=== PATIENT | female | born 1955 | race Caucasian/White ===

== ENCOUNTER → 2017-03-23 07:36 | Outpatient (CLI) | payer OTHER, SELFPAY ==
--- NOTE | 2017-03-23 07:38 | RAD_ITS ---
STUDY: X-RAY - LEFT ANKLE REASON FOR EXAM: Female, 62 years old. Pain and swelling following a twisting injury. TECHNIQUE: 3 view(s) of the ankle. COMPARISON: Comparison is made with prior study dated May 27, 2013. FINDINGS: Normal visualized distal tibia and fibula. Normal medial and lateral malleoli. Normal tibiotalar articulation and ankle mortise. Normal visualized talus and calcaneus. The visualized subtalar, talonavicular, calcaneocuboid and tarsal articulations are normal. Soft tissue swelling. RAD/Ankle min 3 Views IMPRESSION: Soft tissue swelling. Electronically Signed: Neal Snider MD at 8:05 EST Tel [phone], Service support ,
== END ==
PROVIDERS: Family Provider Internal Medicine; PCP Internal Medicine; Visit Provider Internal Medicine
DX: M25.572 Pain in left ankle and joints of left foot (principal)
CPT/HCPCS: 73610

== ENCOUNTER → 2017-05-16 07:33 | Outpatient (CLI) | payer OTHER, SELFPAY ==
--- NOTE | 2017-05-16 07:35 | RAD_ITS ---
STUDY: X-RAY - LUMBAR SPINE REASON FOR EXAM: Female, 62 years old. Chronic lower back pain worsening over the past 2 months. TECHNIQUE: 5 view(s) of the lumbar spine were obtained. COMPARISON: None FINDINGS: Normal lumbar lordosis. There is no substantial scoliosis. There is a normal alignment of the vertebrae. Normal vertebral bodies and endplates. Normal disc space heights. There is no acute fracture, dislocation or destructive osseous pathology. There is no demonstrated spondylolysis of the pars interarticulares. The soft tissue structures are unremarkable. Small rounded calcification in the left upper quadrant. RAD/L/S Spine Min 4 Views IMPRESSION: Normal x-ray examination of the lumbar spine. Electronically Signed: Richie Ward DO at 16:57 EDT Tel [phone], Service support ,
== END ==
PROVIDERS: Family Provider Internal Medicine; PCP Internal Medicine; Visit Provider Internal Medicine
DX: M54.5 Low back pain (principal)
CPT/HCPCS: 72110

== ENCOUNTER → 2017-05-29 06:16 | Outpatient (CLI) | payer OTHER, SELFPAY ==
--- NOTE | 2017-05-29 06:32 | MRI_ITS ---
STUDY: MRI LUMBAR SPINE WITHOUT CONTRAST REASON FOR EXAM: Female, 62 years old. low back pain left side. TECHNIQUE: Standardized fat and water weighted pulse sequences were obtained in the sagittal and axial planes. COMPARISON: March 29, 2012 FINDINGS: T12-L1: Normal endplates. Normal disc height, hydration and morphology. Normal bilateral facet joints. Normal central canal and bilateral lateral recesses. Normal bilateral intervertebral neural foramina. Normal lumbar lordosis. There is no substantial scoliosis. Normal conus medullaris that terminates at the L1/L2 L1-2: There is mild disc space narrowing and endplate spondylosis there is a minimal disc bulge and facet arthropathy without significant central canal or foraminal stenosis. L2-3: There is mild disc space narrowing and endplate spondylosis. There is a minimal disc bulge and facet arthropathy without significant central canal or foraminal stenosis. L3-4: There is mild disc space narrowing and endplate spondylosis. There is mild disc bulge with increased small right paracentral component with mild right lateral recess narrowing. There is no significant central canal or foraminal stenosis. L4-5: There is stable minimal disc space narrowing and endplate spondylosis. There is a mild disc bulge with posterior annular fissure without significant central canal or foraminal stenosis. L5-S1: Normal endplates. Normal disc height, hydration and morphology. Normal central canal and bilateral lateral recesses. Normal bilateral intervertebral neural foramina. There is mild bilateral facet arthropathy. Normal visualized sacral ala. Normal visualized paraspinous soft tissue structures. MRI/Spine Lumbar (Routine) IMPRESSION: Mild multilevel degenerative changes. Electronically Signed: Dagmar Traore MD at 8:31 EDT Tel , Service support ,
== END ==
PROVIDERS: Family Provider Internal Medicine; PCP Internal Medicine; Visit Provider Internal Medicine
DX: M54.5 Low back pain (principal)
CPT/HCPCS: 72148

== ENCOUNTER 2017-06-14 11:30 | Outpatient (RCR) | payer OTHER, SELFPAY ==
--- NOTE | 2017-05-31 15:22 | HP.PTEVAL_ITS ---
Patient's Visit Information JOSELITO BONNER is a 62 year old F referred to Physical Therapy by Shasha HINOJOSA with a diagnosis of LBP. Date of Evaluation: 05/31/17 Physical Therapist: Genaro Mantilla DPT, OC - Visit Plan Frequency: 2x /Week Duration: 4 Weeks Plan: 2x/week for 2-4 weeks for managemnt if discal pathology... ext based ex adn progression of forces. core strength and progress to HEP. Education on activity modification. ice and modalities as needed. - Subjective Subjective: Fell off chair in February and broke foot and hurt back. Has always had back problems but worse since fall. LBP is L and in back at all. MRI showed degenerationa dn bulging discs. No ex at home. Saw chiropractor but not anymore. Has constant burning during the day. Standing from sitting position is hard. Sleep is tossing and turning and luong in LB. Work is tough because sits all day at [employer]. Worse in morning. Avoids vaccuum at home. Wants to walk for fitness but not sure she can right now. - Pain R LBP Pain Intensity (Out of 10): 3 Pain Intensity Range: 0, 10 Comment: 10 in morning, - Objective Walks with excessive pelvic motion, I , trasnfers I but slow and hesitant initially to exit chair. Trasnfers on table are I but painful to scoot and roll. L/S ext painful and min limited, flexion and SB are painless. reflexes 2 /3 patella and achilles. Sensation LE WNL to gross light touch. Strength LE 4- /5 without pain or myotomal problems. - SLR, - slump test. - Goals Goal 1:: full painfree L/S extension Goal Time Frame: 2-4 Weeks Goal 2:: painfree bed and chair transfers. Goal Time Frame: 2-4 Weeks Goal 3:: Pt report pain 1/10 at worst and 90% improved. Goal Time Frame: 2-4 Weeks Goal 4:: Pt I in management including approp walking program/HEP Goal Time Frame: 2-4 Weeks - Rehabilitation Potential Physical Therapy Diagnosis: LBP likely discal in nature. Rehabilitation Potential: Fair - Anticipated Interventions Patient/Client Instruction: Educate patient on: Condition, Plan of Care For the Purpose of:: To decrease pain Therapeutic Exercise to Include: Strength training, Active ROM, Dynamic Lumbar Stabilization For the Purpose of:: To decrease pain, To increase ROM, To improve ability of physical actions for home/community/work/leisure Manual Therapy Techniques to Include: Mobilization Comment: ext For the Purpose of:: To decrease pain, To increase ROM Thank you for the opportunity to evaluate your patient. For Medicare and Medicare HMO plans, please review the plan of care and approve it. It will need to be FAXED BACK to us at [phone] for Medicare purposes. Please let me know if there are questions or concerns regarding this plan of care. Physician Signature: Date:
--- NOTE | 2017-06-14 11:54 | HP.PTDCSUM ---
HP - PT D/C Summary It has been my pleasure to treat JOSELITO BONNER under orders from Shasha Mayo, for the diagnosis of LBP for a total of 4 visit(s). Discharge Date: 06/14/17 Please see the following information for a summary of their discharge status. - Subjective Subjective: Doing good. Only am pain and for 15 minutes 2/10 adn back bends help. It is good the rest of day. Using towel roll at work. - Pain R LBP Pain Intensity (Out of 10): 3 - Overall Improvement % Improvement: 90 - Objective Objective/Function: Admittedly very little time to walk or exercise. Full L/S AAROM with just minor end range pain with extension. OVERALL DOING EXCELLENT. - Goals Goal 1:: full painfree L/S extension Goal Progress: Progressing Goal 2:: painfree bed and chair transfers. Goal Progress: Goal Met Goal 3:: Pt report pain 1/10 at worst and 90% improved. Goal Progress: Progressing Goal 4:: Pt I in management including approp walking program/HEP Goal Progress: Goal Met - Plan Plan: D/C to HEP - D/C Information Discharge Comments: Pt to continue HEP I and call if problems or concerns. If there are questions or concerns regarding this patient's physical therapy, please feel free to call me at [phone]. Thank you for the referral of this patient. Sincerely, Genaro Mantilla, DPT, OC
== END 2017-06-14 19:00 | disposition home or self-care (01) ==
LOC: PT 11:30
PROVIDERS: Family Provider Internal Medicine; PCP Internal Medicine; Visit Provider Internal Medicine
DX: M54.5 Low back pain (principal)
CPT/HCPCS: 97110; 97161; 97530

== ENCOUNTER → 2017-08-28 06:15 | Outpatient (CLI) | payer OTHER, SELFPAY ==
--- NOTE | 2017-08-28 06:34 | MRI_ITS ---
STUDY: MRI LEFT ANKLE WITHOUT CONTRAST REASON FOR EXAM: Female, 62 years old. Left-sided ankle pain. Patient has history of prior calcaneal fracture. TECHNIQUE: Standardized fat and water weighted pulse sequences were obtained in all 3 orthogonal planes. COMPARISON: Radiographs of left ankle dated March 23, 2017. FINDINGS: Normal subcutis adipose space. Normal posterior tibialis tendon. Normal flexor digitorum longus tendon. Normal flexor hallucis longus tendon. Normal peroneus longus and brevis tendons. Normal tibialis anterior tendon. Normal extensor hallucis longus tendon. Normal extensor digitorum longus tendons. Normal Achilles tendon and teno-osseous insertion. Normal plantar fascia. Normal plantar calcaneal tubercles. Normal intrinsic muscles of the rearfoot. Normal distal tibiofibular syndesmotic ligamentous complex. Normal lateral ligamentous complex. Normal subtalar ligaments and sinus tarsi. Normal deltoid ligamentous complexes. Normal tibiotalar articulation. There may be a ganglion cyst posterior to the talus versus small effusion. Normal talar dome. Normal subtalar articulations. Normal talonavicular articulation. Normal calcaneocuboid articulation. Normal navicular-cuneiform articulations. MRI/Lower Ext Joint Only (Routine) IMPRESSION: Small joint effusion. Electronically Signed: Miya Jimenez MD at 9:03 EDT , Service support ,
== END ==
PROVIDERS: Family Provider Internal Medicine; PCP Internal Medicine; Visit Provider Podiatrist
DX: S92.025D Nondisplaced fracture of anterior process of left calcaneus, subsequent encounter for fracture with routine healing (principal); S93.491D Sprain of other ligament of right ankle, subsequent encounter; M79.672 Pain in left foot; M25.572 Pain in left ankle and joints of left foot; X58.XXXD Exposure to other specified factors, subsequent encounter
CPT/HCPCS: 73721

== ENCOUNTER → 2018-01-10 06:54 | Outpatient (CLI) | payer OTHER, SELFPAY ==
--- NOTE | 2018-01-10 06:58 | BI_ITS ---
MAMMOGRAPHY - BILATERAL SCREENING REASON FOR EXAM: Female, 62 years old. Routine annual screening examination. PERTINENT HISTORY: Non-contributory. TECHNIQUE: Digital bilateral breast faith (3D mammographic acquisition) in the CC and MLO projections. 2-D mediolateral oblique (MLO) and craniocaudad (CC) views of both breasts were obtained. CAD: Full Field Digital Mammography with Computer Added Detection was performed. COMPARISON: Comparison is made with prior examination dated June 25, 2015 and June 09, 2014. FINDINGS: Breast Composition: There are scattered areas of fibroglandular density. There are no dominant masses or suspicious calcifications. Stable small bilateral axillary lymph nodes. No other significant abnormalities are identified. There has been no significant change since the prior study. BI/SCREENING MAMM (CAD), BILAT IMPRESSION: Stable bilateral screening mammogram. Yearly follow-up mammogram recommended. (A) ASSESSMENT CATEGORY: BIRADS Category 2: Benign. A letter regarding these results will be sent to the patient by the facility within 30 days. Approximately 10% of breast cancers are not detected by mammography. A normal mammogram should not delay biopsy of a clinically suspicious abnormality. [id number] Electronically Signed: Neal Snider MD at 9:43 EST Tel [phone], Service support ,
== END ==
PROVIDERS: Family Provider Internal Medicine; PCP Internal Medicine; Referring Provider Internal Medicine; Visit Provider Internal Medicine
DX: Z12.31 Encounter for screening mammogram for malignant neoplasm of breast (principal)
CPT/HCPCS: 77063; 77067

== ENCOUNTER → 2019-01-08 07:39 | Outpatient (CLI) | payer OTHER, SELFPAY ==
--- NOTE | 2019-01-08 07:52 | US_ITS ---
STUDY: ABDOMINAL ULTRASOUND REASON FOR EXAM: Female, 63 years old. The patient has a history of mononucleosis. TECHNIQUE: Transabdominal ultrasound was performed with real-time and static nielsen scale imaging. TECHNICAL QUALITY: Adequate. COMPARISON: None. FINDINGS: Liver: The liver measures 12.7 cm. There is increased echogenicity consistent with fatty infiltration. The bile ducts are within normal limits. There is hepatic color flow. The direction of portal flow is hepatopetal. There is a 1.1 cm x 1 cm x 0.6 cm cyst in the right lobe of the liver. Portal vein measurement: Gallbladder: Normal distended gallbladder. The gallbladder wall measures 2.3 mm. There is a negative sonographic Amaya's sign. There is no pericholecystic fluid. There are no gallstones. Common Bile Duct (C.B.D.): The common bile duct measures 4.8 mm. Pancreas: Normal size of the head, body and tail of the pancreas. There is normal echogenicity of the pancreas. There is no demonstrated pancreatic mass or cyst. Spleen: Normal size of the spleen. The spleen measures 9.4 cm x 3.7 cm x 3.7 cm. Right Kidney: Normal size of the right kidney. The right kidney measures 10.3 cm x 4.7 cm x 5.1 cm. Normal renal cortex. The right cortex measures 1.6 cm. There is no demonstrated renal mass or cyst. There is no right hydronephrosis. Left Kidney: Normal size of the left kidney. The left kidney measures 10.8 cm x 4.8 cm x 5.2 cm. Normal renal cortex. The left cortex measures 1.3 cm. There is a 1.2 cm x 1.2 cm x 1.2 cm left renal cyst. There is no left hydronephrosis. Aorta: Unremarkable. I.V.C.: The IVC is patent. There is no ascites. US/Abdomen Complete IMPRESSION: Fatty infiltration of the liver. 1.1 cm x 1 cm x 0.6 cm cyst in the right lobe of the liver. Small left renal cyst. Electronically Signed: Neal Snider, at 11:37 EST , Service support ,
== END ==
PROVIDERS: Family Provider Internal Medicine; PCP Internal Medicine; Referring Provider Internal Medicine; Visit Provider Internal Medicine
DX: B27.90 Infectious mononucleosis, unspecified without complication (principal)
CPT/HCPCS: 76700

== ENCOUNTER → 2019-01-29 15:09 | Outpatient (CLI) | payer OTHER, SELFPAY ==
--- NOTE | 2019-01-29 15:12 | BI_ITS ---
MAMMOGRAPHY - BILATERAL SCREENING REASON FOR EXAM: Female, 64 years old. Routine annual screening examination. PERTINENT HISTORY: Non-contributory. TECHNIQUE: Digital bilateral breast brittney (3D mammographic acquisition) in the CC and MLO projections. 2-D mediolateral oblique (MLO) and craniocaudad (CC) views of both breasts were obtained. CAD: Full Field Digital Mammography with Computer Added Detection was performed. COMPARISON: Comparison is made with prior study to January 10, 2018 and June 25, 2015. FINDINGS: Breast Composition: There are scattered areas of fibroglandular density. There are no dominant masses or suspicious calcifications. Stable small benign-appearing bilateral axillary lymph nodes. No other significant abnormalities are identified. There has been no significant change since the prior study. BI/SCREEN MAMM (CAD) W/BRITTNEY BILAT IMPRESSION: Stable bilateral screening mammogram. Yearly follow-up mammogram recommended. (A) ASSESSMENT CATEGORY: BIRADS Category 1: Negative. A letter regarding these results will be sent to the patient by the facility within 30 days. Approximately 10% of breast cancers are not detected by mammography. A normal mammogram should not delay biopsy of a clinically suspicious abnormality. [id number] Electronically Signed: Neal Snider, at 9:06 EST , Service support ,
== END ==
PROVIDERS: Family Provider Internal Medicine; PCP Internal Medicine; Referring Provider Internal Medicine; Visit Provider Internal Medicine
DX: Z12.31 Encounter for screening mammogram for malignant neoplasm of breast (principal)
CPT/HCPCS: 77063; 77067

== ENCOUNTER 2019-12-08 21:34 | Observation (INO) | payer OTHER, SELFPAY ==
[2019-12-08 21:36] VITALS: BP 122/56; PULSE 78; RESP 16; TEMP 36.8; O2SAT 95; BMI 37.1
[2019-12-08] MEDS: morphine 8 MG/ML Syringe IM (22:32)
[2019-12-08] MEDS: diazePAM 5 MG Tablet PO (22:33)
[2019-12-08 23:20] VITALS: BP 112/53; O2SAT 93
--- NOTE | 2019-12-08 23:39 | ED.VISSUMM ---
- ER Visit Summary Date of Service: 12/08/19 Chief Complaint: Back pain History of Present Illness: The patient is a [address] Gray. She reports that she has low back pain that began today. It is a sharp pain that is 10 out of 10 with any movement and 2 out of 10 at rest. She taken ibuprofen without relief. She denies any trauma. No fall, MVA, or change in activity. There is no radiation to her legs. No numbness or weakness in her legs. No problems with her bowels or bladder. No groin numbness. Patient is on Eliquis for prior PEs. She denies any trauma. She denies fever, chills, abdominal pain, dysuria, frequency, or other red flags. Physical Examination: Vitals: Stable. Afebrile. General: A&O x 3. NAD. Cardiovascular exam: Regular rate and rhythm, no murmur, rub or gallop. Respiratory exam: Clear to auscultation bilaterally. No wheezes or stridor. Abdominal exam: Soft, nontender, nondistended, normal bowel sounds. No peritoneal signs. Back: Diffuse mild tenderness to palpation over the lumbar spine and the paraspinous musculature in the lumbar region. No point tenderness. Negative straight leg bilaterally. 5/5 DF, PF, EHL bilaterally. Normal sensation to light touch throughout. Extremity: No clubbing, cyanosis, or edema. Emergency Department Course and Treatment: Patient was given a dose of morphine IM and Valium p.o. She taken ibuprofen prior to arrival. She was unable to get out of the bed. She was given Sherwood p.o. She was observed over the course of another hour and still was unable to stand and ambulate. Treatment Plan: Patient was discussed with Dr. Craven. She will be admitted to hospital for further ablation and treatment. Disposition: Admitted in stable condition. Impression: 1. Intractable back pain. 2. Coagulopathy on Eliquis. This note was generated with [employer] dictation software. It may contain incorrect words, spelling, and punctuation that were not noted in review of the chart prior to signing ED Disposition - Plan for ED Patient: Instructions: ED Back Pain Acute or Chronic Prescriptions: Hydrocodone Bitart/Apap 5-325 [Sherwood 5MG-325MG] 1 tab PO Q4H PRN PRN 2 Days #10 tab PRN Reason: Pain Prescription Printed Diazepam [Valium] 5 mg PO Q8 PRN #10 tab PRN Reason: Muscle Spasm Prescription Printed Referrals: Shasha Mayo DO [Primary Care Provider] - 3-5 Days if not improving
--- NOTE | 2019-12-09 00:04 | ED.RN ---
Attempted to discharge patient home. After several tries, PT was able to sit at edge of bed and stand. PT unable to sit in chair and was too afraid to ambulate. MD aware and at bedside.
[2019-12-09] MEDS: HYDROcodone Bitartrate/Apap 5/325 Tablet PO (00:16)
[2019-12-09 01:27] VITALS: BP 102/55; PULSE 80; RESP 15; O2SAT 93
--- NOTE | 2019-12-09 01:27 | PCM.HP.STD ---
Problem List (1) Intractable back pain Status: Acute (2) Anxiety and depression Status: Chronic (3) Obesity Status: Chronic Qualifiers: Obesity type: due to excess calories Obesity classification: adult class 2 (BMI 35 - 39.9) Serious obesity comorbidity presence: without serious comorbidity Body mass index: BMI 37.0-37.9 Qualified Code(s): E66.09 - Other obesity due to excess calories; Z68.37 - Body mass index [BMI] 37.0-37.9, adult (4) DVT of lower extremity (deep venous thrombosis) Status: Chronic Qualifiers: Affected thrombotic vein of extremity: unspecified vein of extremity Chronicity: unspecified Laterality: unspecified laterality Qualified Code(s): I82.409 - Acute embolism and thrombosis of unspecified deep veins of unspecified lower extremity (5) Pulmonary embolism Status: Chronic Qualifiers: Pulmonary embolism type: unspecified Chronicity: unspecified Acute cor pulmonale presence: unspecified Qualified Code(s): I26.99 - Other pulmonary embolism without acute cor pulmonale History of Present Illness Date of Admission: 12/09/19 Chief Complaint: Intractable back pain The patient is a 64 y/o F w/ PMHx: Hx PE on eliquis, Anxiety and Depression, Obesity, hx of intermittent lumbar back pain over the years who presents to the [facility] ED on 12/09/19 with history of intractable back pain, specifically located in the right lower back, paraspinal region and the R SI region, worse with movement, described as sharp stabbing, 10 out of 10 in severity with any movement, resting 2/10 starting < 24 hours prior and not resolving. She denies any radiation of pain into her extremities, paresthesias, or changes to bowel or bladder function with ongoing normal sensation. Work-up in the ED included T 98.2, heart rate 78, BP 122/56, respiratory rate 16, 95% on room air, no labs or imaging was ordered. In the ED patient was ministered morphine, Valium and Standard but upon attempted discharge patient with severe ongoing debility and back pain prompting request for admission. Past Medical History Past Medical History (Chronic Problems): Chronic Problems Anxiety and depression (Chronic) Obesity (Chronic) Pulmonary embolism (Chronic) DVT of lower extremity (deep venous thrombosis) (Chronic) Allergies amoxicillin trihydrate [From Augmentin] Allergy (Verified 12/08/19 21:35) Angioedema Penicillins [PCN] Allergy (Verified 12/08/19 21:35) Angioedema potassium clavulanate [From Augmentin] Allergy (Verified 12/08/19 21:35) Angioedema Home Medications: Ambulatory Orders Medication Instructions Recorded Apixaban [Eliquis] 2.5 mg PO BID 12/08/19 Citalopram [Celexa] 30 mg PO DAILY 12/08/19 Diazepam [Valium] 5 mg PO Q8 PRN #10 tab 12/08/19 Hydrocodone Bitart/Apap 5-325 1 tab PO Q4H PRN PRN 2 Days #10 tab 12/08/19 [Standard 5MG-325MG] Surgical History: - - Initial ovarian cyst intervention, partial hysterectomy, eventual total hysterectomy with bilateral salpingo-oophorectomy, appendectomy, right knee surgery. Psychiatric History: Anxiety, Depression [employer] History: ovarian cysts Lives: Spouse/ Significant Other Smoking Status: Never smoker Tobacco Use: Non-smoker Alcohol: None Drugs: None - *Family History Maternal History Items: - - Patient notes history of suicide in her mother. Paternal History Items: Cancer, Diabetes, - - Patient notes paternal family history of diabetes and colon cancer. Review of Systems Constitutional: Reports: Malaise, Weakness, Fatigue. Denies: Anorexia, Chills, Fever, Weight Change HEENT: Denies: Head Aches, Sinus Congestion, Sinus Drainage Cardiovascular: Denies: Chest Pain, Palpitations Respiratory: Denies: Cough, Shortness of breath at rest, Sputum production Gastrointestinal: Denies: Abdominal Pain, Nausea, Vomiting Genitourinary: Denies: Dysuria Musculoskeletal: Reports: Back Pain. Denies: Joint Pain, Joint Tenderness Skin: Denies: Rash, Wounds Neurological: Denies: Numbness, Tingling, Focal weakness Psychiatric: Reports: Anxiety, Depression. Denies: Homicidal Ideations, Suicidal Ideations Hematologic/ Lymphatic: Reports: Easy Bleeding. Denies: Easy Bruising VTE Information - Inpt Only VTE Present on Admission: No VTE Mechan Device Prophylaxis: SCD's VTE Pharm Prophylaxis ordered?: No Reason prophylaxis not ordered:: Treatment Not Indicated - Continued on home eliquis regimen. Patient Problems: Active and Suspected Problems Intractable back pain (Acute) Subjective: Patient laying in the ED bed, fatigued appearing, significant acute onset severe pain with any movement attempts during examination. Objective: Physical Examination: General: awake, alert, oriented x 3 and cooperative, laying in the ED bed, fatigued appearing, severe onset intractable back pain with any movements attempted during examination. Skin: normal color, turgor, no icterus, cyanosis. HEENT: AT/NC, EOMI, PERRLA, mildly dry MM, no carotid bruits or JVD noted. Lungs: CTA bilaterally, moderate effort, mild decrease BL bases, no rales, ronchi or wheezing. Heart: Mildly tachycardic with regular rhythm; no gallop, rub audible. Abdomen: soft, obese, NTTP, ND, normal BS, no HSM. Extremities: no cyanosis, clubbing, or edema. Neurological: patient awake, alert, oriented x 3; cognitive function intact; pupils equally reactive to light and accomodation; cranial nerves II-XII grossly normal, moving all 4 extremities however severely limited examination with any further movement attempts, difficulty even rolling in the bed for exam, discomfort with palpation of the right paraspinal and sacroiliac regions but more severe with movement attempts during evaluation, strength severely global decreased accordingly. Psychiatric: affect appears fatigued, uncomfortable, no acute evidence of depressive or anxiety feelings. - Physical Exam Vitals/I&O's: Vital Signs Temp Pulse Resp BP Pulse Ox 98.2 F 78 16 112/53 L 93 12/08/19 21:36 12/08/19 21:36 12/08/19 21:36 12/08/19 23:20 12/08/19 23:20 Oxygen Delivery Method Room Air Weight: 216 lb 4.375 oz Body Mass Index (BMI) 37.1 Assessment/Plan All Active Problems Intractable back pain (Acute) The patient is a 64 y/o F w/ PMHx: Hx PE on eliquis, Anxiety and Depression, Obesity, hx of intermittent lumbar back pain over the years who presents to the [facility] ED on 12/09/19 with history of intractable back pain, specifically located in the right lower back, paraspinal region and the R SI region, worse with movement, described as sharp stabbing, 10 out of 10 in severity with any movement, resting 2/10 starting < 24 hours prior and not resolving. 1. Acute Intractable Back Pain: Will admit to [facility], obtain plan film lumbar spine and SI/sacral/coccyx region, maintain on fall precautions, frequent positioning, po/IV pain regimen, scheduled toradol 30 mg IV a 8 x 5 doses, lidocaine patches to region, tizanidine low dose scheduled, medrol dose pack, low dose TID gabapentin, anti-emetics, bowel regimen. Will consult PT and OT for evaluation. 2. History of pulmonary embolism: Patient with a history of a remote pulmonary embolism following surgery in 2001 with a recurrent pulmonary embolism following knee surgery approximately 5 years prior to current presentation, since then patient has been maintained on oral Eliquis regimen which be continued. 3. Anxiety and depression: We will continue patient home Celexa regimen. 4. Obesity: Weight loss and lifestyle changes encouraged. 5. DVT prophylaxis: SCDs, continue home Eliquis regimen. OBSV E&M: [id number] Initial observation care L3
[2019-12-09 02:14] VITALS: BP 102/55; PULSE 80; RESP 15; TEMP 36.6; O2SAT 93
--- NOTE | 2019-12-09 02:24 | NURSING ---
Per Susana in ER, the lumbar xray was not done at this time d/t the fact that the pt is too painful and Dr. Craven agreed.
[2019-12-09 02:28] VITALS: BMI 30.8
--- NOTE | 2019-12-09 02:31 | RAD_ITS ---
STUDY: X-RAY - SACRUM/COCCYX REASON FOR EXAM: Female, 64 years old. Intractable back pain, no injury TECHNIQUE: 3 view(s) of the sacrum and coccyx were obtained. COMPARISON: None. FINDINGS: Normal bilateral sacroiliac joints. Normal visualized sacral ala and fused sacral bodies. Normal sacrococcygeal junction with a normal angulation. Normal coccygeal segments. The presacral soft tissue structures are unremarkable. RAD/Sacrum-Coccyx min 2 Views IMPRESSION: No acute bony injury of the sacrum and coccyx. Electronically Signed: Jaswant Benjamin DO at 17:02 EDT Tel [phone], Service support ,
[2019-12-09 02:43] VITALS: BP 113/64; PULSE 81; RESP 18; TEMP 36.6; O2SAT 95
[2019-12-09] MEDS: 0.9% Normal Saline 1,000 ML 125 ML IV (03:30)
[2019-12-09] MEDS: Ketorolac 30 MG/ML Syringe IV ×3 (03:30→13:38)
[2019-12-09] MEDS: tiZANidine HCl 2 MG Tablet PO ×3 (03:30→13:44)
[2019-12-09] MEDS: Gabapentin 100 MG Capsule PO ×4 (03:30→17:20)
[2019-12-09] MEDS: 0.9% Saline Lock 10 ML Syringe IV ×2 (03:33→13:38)
[2019-12-09 06:10] LABS: Absolute Lymphocyte Count 1.08 X10^3/uL (0.83-4.51); Absolute Neutrophil Count 4.7 X10^3/uL (2.0-7.7); Basophil# 0.03 X10^3/uL; Basophil% 0.5 % (0-1); Eosinophil# 0.12 X10^3/uL; Eosinophils% 1.8 % (0-5); Hematocrit 40.2 % (37-47); Hemoglobin 12.6 g/dL (12.0-15.0); Lymphocyte # 1.08 X10^3/ul (4.0); Lymphocyte % 16.4 % (19-41); Mean Corp Hgb Conc 31.3 g/dL (32-36); Mean Corpuscular Hgb 28.8 pg (27.0-32.0); Mean Corpuscular Volume 91.8 fL (81-99); Mean Platelet Vol. 10.7 fl (6.2-12.0); Monocyte% 9.1 % (0-10); NRBC Flagged by Analyzer 0 % (0-5); Neutrophil # 4.72 X10^3/uL (2.7-7.7); Neutrophil % 71.7 % (47-70); Platelet Count 222 K/mm3 (150-450); RBC Distribution Width CV 12.9 % (11.6-14.6); RBC Distribution Width SD 43.8 fl (35.1-43.9); Red Blood Count 4.38 M/mm3 (4.2-5.4); White Blood Count 6.6 K/mm3 (4.4-11.0)
[2019-12-09 06:37] LABS: AST(SGOT) 11 U/L (15-37); Alanine Aminotransfer ALT/SGPT 21 U/L (13-56); Albumin, Serum 3.2 g/dL (3.2-5.0); Alkaline Phosphatase 57 U/L (45-117); Anion Gap 5 (5-15); BUN 17 mg/dL (7-18); BUN/Creat Ratio 21.1 RATIO (10-20); Calcium,Total 8.8 mg/dL (8.5-10.1); Chloride 107 mmol/L (98-107); Creatinine, Serum 0.81 mg/dL (0.55-1.02); EST Glomerular Filtration Rate 76 mL/min (>60); Est Glom Filt Rate - Afr Amer 92 mL/min (>60); Estimated Creatinine Clearance 61.39 ml/min; Globulin 3.1 g/dL (2.2-4.2); Glucose 90 mg/dL (74-106); Potassium 3.7 mmol/L (3.5-5.1); Protein, Total 6.3 g/dL (6.4-8.2); Sodium Level 140 mmol/L (136-145)
[2019-12-09] MEDS: MethylPREDNISolone DosePak 4 MG BOX PO ×3 (09:02→17:20)
[2019-12-09] MEDS: APIXABAN 2.5 MG TABLET PO (09:03)
[2019-12-09] MEDS: Lidocaine 5% Patch 2 PATCH TOPICAL (09:03)
[2019-12-09] MEDS: Pantoprazole Sodium 20 MG Tablet PO (09:03)
[2019-12-09 09:05] VITALS: BP 103/56; PULSE 65; RESP 16; TEMP 36.6; O2SAT 95
[2019-12-09 11:30] VITALS: O2SAT 95
--- NOTE | 2019-12-09 13:55 | RAD_ITS ---
STUDY: X-RAY - LUMBAR SPINE REASON FOR EXAM: Female, 64 years old. intractable back pain, no injury TECHNIQUE: 3 view(s) of the lumbar spine were obtained. COMPARISON: None FINDINGS: Normal lumbar lordosis. There is no substantial scoliosis. There is a normal alignment of the vertebrae. Normal vertebral bodies with mild spurring at the endplates. Normal disc space heights. The soft tissue structures are unremarkable. RAD/Lumbar Spine 2 or 3 Views IMPRESSION: Mild degenerative changes of the lumbar spine. Electronically Signed: Jaswant Benjamin DO at 17:01 EDT Tel [phone], Service support ,
--- NOTE | 2019-12-09 15:16 | PCM.DC ---
- Discharge Diagnoses Current Active Problems: Current Active and Chronic Problems Intractable back pain (Acute) Anxiety and depression (Chronic) Obesity (Chronic) You will use the following diet at home:: Regular Discharge Activity: May Not Drive Weight Bearing Status: Weight bearing as tolerated Additional Activity Instructions:: Outpatient PT for back pain Call your doctor if you observe: Fever of 101 or Higher, Coldness, Increased Pain, Numbness or Tingling, Inability to urinate, Inability to have a bowel movement, Using more than one pad per hour, Shortness of breath, Dizziness, Fainting spells, Swelling in the ankles, Chest pain, Prolonged hiccoughing, Increased palpitations (irregular heartbeat), Calf discomfort, Uncontrolled pain Instructions: ED Back Pain Acute or Chronic Allergies/Adverse Reactions: Allergies amoxicillin trihydrate [From Augmentin] Allergy (Verified 12/09/19 02:33) Angioedema, rash Penicillins [PCN] Allergy (Verified 12/09/19 02:33) Angioedema, rash potassium clavulanate [From Augmentin] Allergy (Verified 12/09/19 02:33) Angioedema, rash Medications to take at Discharge Apixaban [Eliquis] 2.5 mg PO BID 12/08/19 Citalopram [Celexa] 30 mg PO DAILY 12/08/19 Hydrocodone/Acetaminophen [Jewett 5-325 Tablet] 1 each PO Q4H PRN #10 tablet 12/09/19 MethylPREDNISolone DosePak [Medrol DosePak] 4 mg PO UD #1 pack 12/09/19 Tizanidine HCl 4 mg PO TID PRN PRN #14 tab 12/09/19 The following prescriptions were given: MethylPREDNISolone DosePak [Medrol DosePak] 4 mg PO UD #1 pack Transmission Status: Pending to [facility] Hydrocodone/Acetaminophen [Jewett 5-325 Tablet] 1 each PO Q4H PRN #10 tablet PRN Reason: Pain Score 6-10 Transmission Status: Received by [facility] Tizanidine HCl 4 mg PO TID PRN PRN #14 tab PRN Reason: MUSCLE SPASM Transmission Status: Pending to [facility] Primary Care Physician: Shasha Mayo DO [Primary Care Provider] - 3-5 Days if not improving Please follow up with your Primary Care Physician in: IN 2 WEEKS Test Results: Test results from this visit will be discussed in further detail at your follow-up appointment, if applicable. Please Follow Up With: Nya Littlejohn MD When: IN 3-4 WEEKS FOR
[2019-12-09 15:20] VITALS: BP 108/56; PULSE 66; RESP 16; TEMP 36.7; O2SAT 94
--- NOTE | 2019-12-09 15:30 | DS.PCM_ITS ---
Discharge Date and Diagnosis - Problem List Patient Problems: Active and Suspected Problems Intractable back pain (Acute) Date of Admission: 12/09/19 Date of Discharge: 12/09/19 - Primary Discharge Diagnosis Acute Problems: Active Problems Intractable back pain (Acute) - Secondary Discharge Diagnosis Chronic Problems: Chronic Problems Anxiety and depression (Chronic) Obesity (Chronic) Pulmonary embolism (Chronic) DVT of lower extremity (deep venous thrombosis) (Chronic) Hospital Course and Treatment Imaging Results: 12/09/19 13:55 Xray Lumbar [Lumbar Spine 2 or 3 Views] [RAD] Stat Summary of Care Provided: The patient is a 64 year old F with history of PE on Eliquis was admitted with intermittent lumbar back pain, acute exacerbation for 1 day with history of chronic back pain being managed by PCP. [facility] physician wanted to discharge on Valium, Hum[place] but patient was unable to ambulate therefore admitted. Patient pain was controlled. Patient was treated with Medrol Dosepak, oxycodone and muscle relaxant. Patient was evaluated by PT and recommended outpatient physical therapist. Patient is discharged on Medrol Dosepak, tizanidine and Humarock PRN for pain control. Patient was advised to follow-up with PCP and pain management doctor. Outpatient physical therapy. Her other comorbidities PE, anxiety and depression are controlled. Patient is on Eliquis for PE. Discharge medication reconciliation done. Discharge follow-up instructions co mpleted. Discharge process discussed with the patient and her near the bedside and all questions were answered to patient's satisfaction. Prescription sent to the patient's pharmacy. Total time spent, exact 35 minutes on discharge meds reconciliation, examination, coordination of care with nurses and ancillary staff, review of imaging and blood test and discussion with the patient on follow-up instructions Patient Problems: Active and Suspected Problems Intractable back pain (Acute) Objective: Seen and examined. Heart rate and blood pressure are controlled. Pulse ox 94% on room air. Patient complain of lumbosacral back pain more on the right side. Pain is localized 4-5/10 intensity without radiation. No numbness, tingling or new bladder or bowel incontinence. Patient ambulated in the mixon with slow gait by physical therapist and recommended outpatient PT. Physical finding General: Alert, Oriented x3, Cooperative HEENT: Atraumatic, PERRLA, EOMI, Normocephalic Oral: No Gingival or Mucosal Lesions/ Ulcerations Neck: Supple, No JVD, Negative Carotid Bruits Lungs: Air entry equal in bilateral lung bases. No crepitation/rhonchi Cardiovascular: Regular rate, Regular Rhythm, Normal S1, Normal S2, No murmurs Abdomen: Bowel Sounds Present, Soft, Non Tender, Non-Distended : No renal angle tenderness. No suprapubic tenderness. Extremities: No edema, Capillary Refill Less than 3 Seconds Spine: Mild tenderness over lumbosacral spine. Muscle tenderness over right- sided paraspinal muscle. Skin: No rashes, No breakdown Musculoskeletal: No Tenderness to Palpation of Joints or Extremities Neurological: Cranial nerves II-XII grossly intact, Deep Tendon Reflexes 2+/4 and Symmetrical, Neuro grossly intact Psych/Mental Status: Normal Affect, Appropriate. - Physical Exam Vitals/I&O's: Vital Signs Temp Pulse Resp BP Pulse Ox 98.1 F 66 16 108/56 L 94 12/09/19 15:20 12/09/19 15:20 12/09/19 15:20 12/09/19 15:20 12/09/19 15:20 Oxygen Delivery Method Room Air Weight: 179 lb 10.828 oz Body Mass Index (BMI) 30.8 Intake and Output for Last 24 Hours 12/07/19 12/08/19 12/09/19 23:59 23:59 23:59 Intake Total 1287.92 / 1287.92 Output Total 0 / 0 Balance 1287.92 / 1287.92 Laboratory Results 12/09/19 05:30: WBC 6.6, RBC 4.38, Hgb 12.6, Hct 40.2, MCV 91.8, MCH 28.8, MCHC 31.3 L, RDW Std Deviation 43.8, RDW Coeff of Bre 12.9, Plt Count 222, MPV 10.7, Immature Gran % (Auto) 0.500, Neut % (Auto) 71.7 H, Lymph % (Auto) 16.4 L, [place] % (Auto) 9.1, Eos % (Auto) 1.8, Baso % (Auto) 0.5, Absolute Neuts (auto) 4.7, Absolute Lymphs (auto) 1.08, Nucleated RBC % 0 12/09/19 05:30: Sodium 140, Potassium 3.7, Chloride 107, Carbon Dioxide 28.0, Anion Gap 5, BUN 17, Creatinine 0.81, Estim Creat Clear Calc 61.39, Est GFR (MDRD) Af Amer 92, Est GFR (MDRD) Non-Af 76, BUN/Creatinine Ratio 21.1 H, Glucose 90, Calcium 8.8, Total Bilirubin 0.40, AST 11 L, ALT 21, Alkaline Phosphatase 57, Total Protein 6.3 L, Albumin 3.2, Globulin 3.1, Albumin/Globulin Ratio 1.0 Current Medications Acetaminophen (Tylenol) 650 mg PO Q6H PRN PRN PRN Reason: Pain Score 1-10/Temp > 100.7 F Al Hydroxide/Mg Hydroxide (Mylanta Ii) 30 ml PO Q6H PRN PRN PRN Reason: Gastric Burning Albuterol Sulfate (Ventolin Aerosols) 2.5 mg INHALATION Q2H PRN PRN PRN Reason: Dyspnea, wheezing Apixaban (Eliquis) 2.5 mg PO BID [facility] Last Admin: 12/09/19 09:03 Dose: 2.5 mg Documented by: Citalopram Hydrobromide (Celexa) 30 mg PO DAILY@2200 LAURA Gabapentin (Neurontin) 100 mg PO TIDCM [facility] Last Admin: 12/09/19 12:27 Dose: 100 mg Documented by: Guaifenesin (Robitussin) 20 ml PO Q4H PRN PRN PRN Reason: COUGH Ketorolac Tromethamine (Toradol (Bkc)) 30 mg IV Q8 [facility] Stop: 12/10/19 06:01 Last Admin: 12/09/19 13:38 Dose: 30 mg Documented by: Lidocaine (Lidoderm Patch) 2 patch TOPICAL DAILY [facility]; Protocol Last Admin: 12/09/19 09:03 Dose: 2 patch Documented by: Magnesium Hydroxide (Milk Of Magnesia) 30 ml PO DAILY PRN PRN PRN Reason: Constipation Methylprednisolone (Medrol Dosepak) 4 mg PO 1200,1700 [facility]; Taper Stop: 12/14/19 08:59 Last Admin: 12/09/19 12:27 Dose: 4 mg Documented by: Morphine Sulfate () 2 mg IV Q3H PRN PRN PRN Reason: Pain Score 6-10 Ondansetron HCl (Zofran) 4 mg IV Q8H PRN PRN PRN Reason: NAUSEA/VOMITING Oxycodone HCl (Oxyir) 5 mg PO Q4H PRN PRN PRN Reason: Pain Score 4-5 Pantoprazole Sodium (Protonix) 20 mg PO BID [facility] Last Admin: 12/09/19 09:03 Dose: 20 mg Documented by: Prochlorperazine Edisylate (Compazine Iv) 5 mg IV Q4H PRN PRN PRN Reason: Breakthrough nausea/vomiting Psyllium Hydrophilic Mucilloid (Metamucil) 1 packet PO DAILY PRN PRN PRN Reason: Constipation Senna/Docusate Sodium (Senokot-S, Peggy-Colace) 2 tablet PO BID PRN PRN PRN Reason: Constipation Sodium Chloride () 10 - 40 ml IV UD PRN PRN Reason: SALINE FLUSH Last Admin: 12/09/19 13:38 Dose: 10 ml Documented by: Temazepam (Restoril) 15 mg PO QHS PRN PRN PRN Reason: INSOMNIA Throat Lozenges (Cepacol Sore Throat Lozenge) 1 lozenge MUCOUS MEM Q2H PRN PRN PRN Reason: SORE THROAT Tizanidine HCl (Zanaflex) 2 mg PO Q8 [facility] Last Admin: 12/09/19 13:44 Dose: 2 mg Documented by: Discharge Activity: May Not Drive Weight Bearing Status: Weight bearing as tolerated Additional Activity Instructions:: Outpatient PT for back pain Call your doctor if you observe: Fever of 101 or Higher, Coldness, Increased Pain, Numbness or Tingling, Inability to urinate, Inability to have a bowel movement, Using more than one pad per hour, Shortness of breath, Dizziness, Fainting spells, Swelling in the ankles, Chest pain, Prolonged hiccoughing, Increased palpitations (irregular heartbeat), Calf discomfort, Uncontrolled pain Home Medications: Medications to take at Discharge Apixaban [Eliquis] 2.5 mg PO BID 12/08/19 Citalopram [Celexa] 30 mg PO DAILY 12/08/19 Hydrocodone/Acetaminophen [[place] 5-325 Tablet] 1 each PO Q4H PRN #10 tablet 12/09/19 MethylPREDNISolone DosePak [Medrol DosePak] 4 mg PO UD #1 pack 12/09/19 Tizanidine HCl 4 mg PO TID PRN PRN #14 tab 12/09/19 Following Prescriptions Were Given to Patient: MethylPREDNISolone DosePak [Medrol DosePak] 4 mg PO UD #1 pack Transmission Status: Pending to [facility] Hydrocodone/Acetaminophen [[place] 5-325 Tablet] 1 each PO Q4H PRN #10 tablet PRN Reason: Pain Score 6-10 Transmission Status: Received by [facility] Tizanidine HCl 4 mg PO TID PRN PRN #14 tab PRN Reason: MUSCLE SPASM Transmission Status[facility] Primary Care Physician: Shasha Mayo DO [Primary Care Provider] - 3-5 Days if not improving Please follow up with your Primary Care Physician in: IN 2 WEEKS Please Follow Up With: Nya Littlejohn MD When: IN 3-4 WEEKS FOR Patient Instructions: ED Back Pain Acute or Chronic Medical Necessity - Tobacco Use Smoking Status: Never smoker Tobacco Use: Non-smoker Meaningful Use Info Meaningful Use Diagnoses (Choose all that apply): None applicable OBSV E&M: 37004 Observation care discharge
[2019-12-09] MEDS: oxyCODONE 5 MG Tablet PO (17:26)
== END 2019-12-09 18:00 | disposition home or self-care (01) ==
LOC: ED 22:37 → MS3 12-09 01:41
PROVIDERS: Admitting Provider Family Medicine; Emergency Provider Emergency Medicine; PCP Internal Medicine; Visit Provider Internal Medicine
DX: M54.5 Low back pain (principal); D68.9 Coagulation defect, unspecified; F32.9 Major depressive disorder, single episode, unspecified; F41.9 Anxiety disorder, unspecified; E66.9 Obesity, unspecified; Z86.718 Personal history of other venous thrombosis and embolism; Z86.711 Personal history of pulmonary embolism; Z79.01 Long term (current) use of anticoagulants; Z68.37 Body mass index [BMI] 37.0-37.9, adult; Z79.899 Other long term (current) drug therapy
CPT/HCPCS: 36415; 72100; 72220; 80053; 85025; 96361; 96372; 96374; 96376; 97161; 97166; 99218; 99251; 99284; J7030; A4216; G0378; G0463

== ENCOUNTER 2019-12-11 09:33 | Emergency (ER) | payer OTHER, SELFPAY ==
[2019-12-09 02:28] VITALS: BMI 30.8
[2019-12-11 09:34] VITALS: BP 123/65; PULSE 57; RESP 18; TEMP 36.4; O2SAT 96; BMI 29.2
--- NOTE | 2019-12-11 09:51 | MRI_ITS ---
STUDY: MRI LUMBAR SPINE WITHOUT CONTRAST REASON FOR EXAM: Female, 64 years old. back pain, no new injury, bilat leg spasms TECHNIQUE: Standardized fat and water weighted pulse sequences were obtained in the sagittal and axial planes. COMPARISON: 05/29/2017 FINDINGS: T12-L1: Normal endplates. Normal disc height, hydration and morphology. Normal bilateral facet joints. Normal central canal and bilateral lateral recesses. Normal bilateral intervertebral neural foramina. Normal lumbar lordosis. There is no substantial scoliosis. Normal conus medullaris that terminates at the L1/L2. L1-2: No change in the mild bilobed disc protrusion which produces mild spinal stenosis and mild bilateral neural foraminal stenosis. L2-3: No change in the mild bilobed disc protrusion which produces mild spinal stenosis and mild bilateral neural foraminal stenosis. L3-4: No change in the mild bilobed disc protrusion which produces mild spinal stenosis and mild bilateral neural foraminal stenosis. L4-5: No change in the mild broad disc protrusion with central annular tear which produces mild spinal stenosis and mild bilateral neural foraminal stenosis. L5-S1: Normal endplates. Normal disc height, hydration and morphology. Normal bilateral facet joints. Normal central canal and bilateral lateral recesses. Normal bilateral intervertebral neural foramina. Normal visualized sacral ala. Normal visualized paraspinous soft tissue structures. MRI/Spine Lumbar (Routine) IMPRESSION: No change from 05/29/2017. Electronically Signed: Augustin Samson MD at 12:46 EDT Tel , Service support ,
--- NOTE | 2019-12-11 09:53 | ED.VIS.GEN ---
History of Present Illness Chief Complaint: Back Informant: Patient Onset: Days Context: Gradual Onset - 4 days Current Severity: Moderate Maximum Severity: Severe Narrative: Patient presents secondary to continued back pain. She was seen here in the [place] [facility] [place] hours of the . She states that her back is been sore the evening of the . She went to bed early when trying to get out of bed to go the bathroom had spasms in her back and could not move. She called squad and was transported to the emergency room. She ultimately required admission for intractable pain. She was placed on Turpin, Medrol, muscle spasm medication and was discharged the evening of the . She did have physical therapy while here who recommended continued outpatient PT. Patient was seen by her PCP this morning. Due to continued pain and difficulty getting around attempt was made to order a stat MRI. This was not able to be obtained as an outpatient so patient was sent to the ER for MRI. Patient denies problems with bowel or bladder control. She has aching in the bilateral thighs but no sharp shooting pain down her legs. She does report a history of some mild back problems in the past but never anything this severe. She denies recent change in activity or trauma. No fever or chills. - Past Medical History (1) Anxiety and depression Status: Chronic (2) DVT of lower extremity (deep venous thrombosis) Status: Chronic (3) Pulmonary embolism Status: Chronic Past Medical History - Allergies and Home Meds Allergies/Adverse Reactions: Allergies amoxicillin trihydrate [From Augmentin] Allergy (Verified 12/11/19 09:36) Angioedema, rash Penicillins [PCN] Allergy (Verified 12/11/19 09:36) Angioedema, rash potassium clavulanate [From Augmentin] Allergy (Verified 12/11/19 09:36) Angioedema, rash Primary Care Physician: Shasha Mayo DO [Primary Care Provider] - Prior records reviewed: Yes Surgical History: - - Initial ovarian cyst intervention, partial hysterectomy, eventual total hysterectomy with bilateral salpingo-oophorectomy, appendectomy, right knee surgery. Lives: Spouse/ Significant Other Smoking Status: Never smoker - Family History Paternal Family History: Reports: Cancer, Diabetes, - - Patient notes paternal family history of diabetes and colon cancer. Maternal Family History: Reports: - - Patient notes history of suicide in her mother. Review of Systems General: Denies: Chills, Fever Eyes: Denies: Visual changes - bilaterally ENT: Denies: Bilateral ear pain Cardiovascular: Denies: Chest pain Respiratory: Denies: Dyspnea, Cough Gastrointestinal: Denies: Abdominal pain, Nausea, Vomiting, Diarrhea Genitourinary: Denies: Dysuria Musculoskeletal: Reports: Back pain, Extremity Pain - Aching in thighs Neurological: Denies: Parasthesia Hematologic: Denies: Easy bruising, Easy bleeding Allergy: Denies: Uticaria Physical Exam Vital Signs/Narrative: Vital Signs Temp Pulse Resp BP Pulse Ox 12/11/19 09:34 97.6 F L 57 L 18 123/65 H 96 Inital Vital Signs reviewed: Yes General: Well nourished, Well developed Head: Normocephalic ENT: Moist mucous membranes Neck: Supple Cardiovascular: Regular rate, Regular rhythm Respiratory: No distress, CTA bilaterally Abdomen: Soft, Nontender Extremities: Nontender Skin: Normal color Neurological: Alert, Oriented x3, - - No focal neurologic deficits. Normal sensation throughout. Psychological: Normal affect Diagnostic/Tx/Re-eval Impressions Lumbar Spine MRI 12/11/19 09:51 IMPRESSION: No change from 05/29/2017. Electronically Signed: Augustin Samson MD at 12:46 EDT Tel , Service support , 12/11/19 09:51 MRI Lumbar [Spine Lumbar (Routine)] [MRI] Stat - Medical Decision Making Patient was given a tab of Turpin prior to her MRI. Test results are discussed with her. Her PCP did write her new medications this morning to better control her muscle spasm. She will be discharged home with at this time. ED Disposition - Plan for ED Patient: Disposition: Home or Assisted Living Diagnosis: Back pain Instructions: ED LUMBAR SPRAIN/STRAIN Referrals: Shasha Mayo DO [Primary Care Provider] - 1 Week if not improving
[2019-12-11] MEDS: HYDROcodone Bitartrate/Apap 5/325 Tablet PO (09:59)
[2019-12-11 13:02] VITALS: BP 128/66; PULSE 58; RESP 16; O2SAT 100
== END 2019-12-11 13:03 | disposition home or self-care (01) ==
PROVIDERS: Emergency Provider Emergency Medicine; PCP Internal Medicine
DX: M54.9 Dorsalgia, unspecified (principal); M62.830 Muscle spasm of back; F32.9 Major depressive disorder, single episode, unspecified; F41.9 Anxiety disorder, unspecified; Z79.01 Long term (current) use of anticoagulants; Z79.899 Other long term (current) drug therapy; Z86.718 Personal history of other venous thrombosis and embolism; Z86.711 Personal history of pulmonary embolism
CPT/HCPCS: 72148; 99281; 99283

== ENCOUNTER 2019-12-24 16:30 | Outpatient (RCR) | payer OTHER, SELFPAY ==
[2019-12-09 02:28] VITALS: BMI 30.8
--- NOTE | 2019-12-13 15:29 | HP.PTEVAL ---
Patient's Visit Information JOSELITO BONNER is a 64 year old F referred to Physical Therapy by Dr. Benny Glass MD with a diagnosis of Muscle strain LB. Date of Evaluation: 12/13/19 Physical Therapist: Genaro Mantilla, JENNT, OCS, CSCS - Visit Plan Frequency: 3x /Week Duration: 2-4 Weeks Plan: 2-3x/week for 2-4 weeks for. IFES and MH to LB for pain. Gentle LB ROM extension bias progressing to core strength adn body mechanics/posture insturct. Pt has borrowed tENS unit and may be appropriate for her own if doctor will write the script. - Subjective LBP returned. Has had chronic problems. Got up this past Monday hurting a little bit and then squatted on toilet in am and bad pain. Could not move due to pain and had to call doctor. Squad put her in ER adn gave pain meds of morphine and muscle relaxers which helped but needed to stay and admitted all day Monday. X rays were OK. MRI later showed DDD. Went home Monday night in pain. Went to [facility] Monday morning ordered MRI. Not really improving despite many pain meds. Able to get up and walk around but still very painful and spends day lying in bed. Walking puts strain on it. Cannot stand for long. 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 Enjoys riding motorcycle when able and shopping. Cannot dress self at home. - Pain LBP Pain Intensity (Out of 10): 4 Pain Intensity Range: 0, 10 Comment: lying is best on sides. - Objective eXITS CHAIR i BUT SLOW AND LABORED/CAREFUL AND PAINFUL. Same trasnfrring from supine. Walks with short steps and slightly hunch Fw avoiding excess spinal movment. L/S Ext rom max limited and painful R LB. R SB limited Mod and painful, L SB fulla dn without pain. Flexion Max limited. reflexes 2/3 in patella and achillles. Sensation E WNL to gross light touch. Strength LE 4-/5 without myotomal abnormalities but hip flexion causes back pain. - slump test. - SLR test. PPU seem to improve ROM and NE pain. - Goals Goal 1:: Patient able to trasnfer chair and bed without hesitation or pain increase Goal Time Frame: 4-6 Weeks Goal 2:: Patient have full spinal ROM without pain Goal Time Frame: 4-6 Weeks Goal 3:: I appropr HEP to minimize future problems. Goal Time Frame: 4-6 Weeks Goal 4:: Pt feel 95% back to normal acitviity Goal Time Frame: 4-6 Weeks - Rehabilitation Potential Physical Therapy Diagnosis: discal pathology LB. Rehabilitation Potential: Fair - Anticipated Interventions Patient/Client Instruction: Educate patient on: Condition, Plan of Care For the Purpose of:: To decrease pain, To increase ROM, To improve muscle performance and motor function, To increase tolerance to activity/condition/position, To improve ability of physical actions for home/community/work/leisure, To improve gait and locomotor functions Therapeutic Exercise to Include: Strength training, Postural training, Flexibilty training, Gait and locomotor training, Neuromotor development, Dynamic Lumbar Stabilization, Chel Exercises For the Purpose of:: To decrease pain, To increase ROM, To improve muscle performance and motor function, To increase tolerance to activity/condition/position, To improve ability of physical actions for home/community/work/leisure, To improve gait and locomotor functions Manual Therapy Techniques to Include: Mobilization, Soft tissue mobilization For the Purpose of:: To decrease pain, To increase ROM TENS: Yes IF ES: Yes Thermo therapy (hot pack): Yes For the Purpose of:: To decrease pain, To increase ROM Thank you for the opportunity to evaluate your patient. For Medicare and Medicare HMO plans, please review the plan of care and approve it. It will need to be FAXED BACK to us at [phone] for Medicare purposes. For Medicare only, by signing this I certify the plan of care. Please let me know if there are questions or concerns regarding this plan of care. Physician Signature: Date:
--- NOTE | 2020-02-04 18:22 | HP.PTDCNRP_ITS ---
JOSELITO BONNER was seen in my office for initial evaluation on 12/13/19. The following Plan of Care was established for this patient: Initial Frequency: 3x /Week Initial Duration: 2-4 Weeks Patient/Client Instruction: Educate patient on: Condition, Plan of Care For the Purpose of:: To decrease pain, To increase ROM, To improve muscle performance and motor function, To increase tolerance to activity/condition/position, To improve ability of physical actions for home/community/work/leisure, To improve gait and locomotor functions Therapeutic Exercise to Include: Strength training, Postural training, Flexibilty training, Gait and locomotor training, Neuromotor development, Dynamic Lumbar Stabilization, Chel Exercises For the Purpose of:: To decrease pain, To increase ROM, To improve muscle performance and motor function, To increase tolerance to activity/condition/position, To improve ability of physical actions for home/community/work/leisure, To improve gait and locomotor functions Manual Therapy Techniques to Include: Mobilization, Soft tissue mobilization For the Purpose of:: To decrease pain, To increase ROM TENS: Yes IF ES: Yes Thermo therapy (hot pack): Yes For the Purpose of:: To decrease pain, To increase ROM This patient was last seen in our office 12/24/19. Pertinent comments regarding their Physical therapy will appear below: Pt seen two visits and was getting slowly better. She was to f/u as needed with a phone call in [facility] as she wished to talk to doctor/surgeon before returning. at this point, it has been over 5 weeks and I will discontinue due to nonattendance. At this point I will be discontinuing this patient from physical therapy. I would be happy to see this patient again in the future if found appropriate by the physician. Thank you! Genaro Mantilla, DPT, OCS, CSCS
== END 2019-12-24 19:00 | disposition home or self-care (01) ==
LOC: PT 16:30
PROVIDERS: PCP Internal Medicine; Referring Provider Internal Medicine; Visit Provider Internal Medicine
DX: M62.830 Muscle spasm of back (principal); T14.8XXD Other injury of unspecified body region, subsequent encounter
CPT/HCPCS: 97110; 97161

== ENCOUNTER 2020-03-19 09:18 | Outpatient (RCR) | payer OTHER, SELFPAY ==
[2020-01-03 11:08] VITALS: BMI 29.8
== END 2020-03-19 23:59 ==
LOC: IMMUN 09:18
PROVIDERS: PCP Internal Medicine; Visit Provider Family Medicine
DX: Z23 Encounter for immunization (principal)
CPT/HCPCS: 0011A; 0012A; 91301

== ENCOUNTER 2020-06-03 08:00 | Outpatient (RCR) | payer OTHER, SELFPAY ==
[2020-01-03 11:08] VITALS: BMI 29.8
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
--- NOTE | 2020-12-01 07:46 | HP.PT.NRP ---
JOSELITO BONNER was seen in my office for initial evaluation on 05/13/20. The following Plan of Care was established for this patient: Initial Frequency: 1-2x /Week Initial Duration: 4 Weeks Patient/Client Instruction: Educate patient on: Condition, Plan of Care For the Purpose of:: To decrease pain, To increase ROM, To improve muscle performance and motor function, To improve ability to perform ADL's, To increase tolerance to activity/condition/position, To improve ability of physical actions for home/community/work/leisure, To improve health of tissue, To decrease soft tissue restriction, To increase flexibility/ROM Therapeutic Exercise to Include: Strength training, Postural training, Flexibilty training, Passive ROM, Active ROM For the Purpose of:: To decrease pain, To increase ROM, To improve muscle performance and motor function, To improve ability to perform ADL's, To increase tolerance to activity/condition/position, To improve ability of physical actions for home/community/work/leisure, To improve health of tissue, To decrease soft tissue restriction, To increase flexibility/ROM Manual Therapy Techniques to Include: Mobilization Comment: CERVICAL TRACTION For the Purpose of:: To decrease pain, To increase ROM, To improve health of tissue, To decrease soft tissue restriction, To increase flexibility/ROM Cryotherapy (ice pack, ice massage): Yes Thermo therapy (hot pack): Yes Ultrasound (thermal/non thermal): Yes Intermittent cervical traction: Yes - 15-20# [id number] For the Purpose of:: To decrease pain, To increase ROM, To improve nutrient delivery to tissue, To increase oxygenation perfusion, To improve health of tissue, To decrease soft tissue restriction, To increase flexibility/ROM This patient was last seen in our office . Pertinent comments regarding their Physical therapy will appear below: Patient was seen for PT for cervical radiculopathy for ICTX and postural ex's thus is d/c At this point I will be discontinuing this patient from physical therapy. I would be happy to see this patient again in the future if found appropriate by the physician. Thank you! Barrett Martin, PT, Cert MDT, OCS Balance/Gait/Functional tests - Balance/Special Test Scores Oswestry Neck Score: 0
== END 2020-06-03 19:00 | disposition home or self-care (01) ==
LOC: PT 08:00
PROVIDERS: PCP Internal Medicine; Referring Provider Internal Medicine; Visit Provider Internal Medicine
DX: M54.12 Radiculopathy, cervical region (principal)
CPT/HCPCS: 97012; 97033; 97035; 97110; 97140; 97162

== ENCOUNTER → 2020-12-30 | Outpatient (CLI) | payer OTHER, SELFPAY ==
--- NOTE | 2020-12-30 10:30 | CYSPIN_PTH ---
PATIENT: JOSELITO BONNER LOC: [facility] U#:[id number] AGE/SX: 65/F ROOM: RE12/30/[address]: Dr. Saundra Fall MD : [id number] BED: DIS: 12/30/2020 SPEC #: [id number] RECD: 12/31/20 07:52 STATUS: YANY REManjula #: [id number] MARISABEL: 12/30/20 10:[address]: Saundra Fall DEPT: CYTOLOGY RECD BY: Qi Rodriguez ENTERED: 12/31/20 07:52 SP TYPE: CYSPIN FL OTHR DR: Dr. Shasha Mayo, DO Tissues: Urine Procedures: Pap Stain (control) Special Stain Group II Cytospin Fluid HEADER OPERATION: Not noted PRE-OP DIAGNOSIS: Gross hematuria TISSUE SUBMITTED: Urine for cytology DIAGNOSIS CYTOLOGY Urine for cytology (cytospin): Negative for malignant cells. See comment. MERY:halle 12/31/2020 COMMENT Red blood cells are noted. The specimen predominantly consists of squamous epithelial cells. CYTOLOGY STUDY Slides are reviewed. CYTOLOGY GROSS Received is 60 ml of cloudy brown fluid labeled with the patient's name and and designated per the requisition as urine. Submitted for cytology preparation. / halle 12/31/20 TC:5 CPT: 64782
[2020-12-30 12:30] LABS: Cytology, Body Fluid / CSF SEE PATHOLOGY REPORT
== END | disposition home or self-care (01) ==
LOC: LABSPEC 15:26
PROVIDERS: PCP Internal Medicine; Visit Provider Urology
DX: R31.0 Gross hematuria (principal)
CPT/HCPCS: 88108; 88313

== ENCOUNTER → 2021-01-19 12:55 | Outpatient (CLI) | payer OTHER, SELFPAY ==
--- NOTE | 2021-01-19 13:09 | CT_ITS ---
INDICATION: GROSS HEMATURIA EXAMINATION: CT ABDOMEN AND PELVIS WITH AND WITHOUT CONTRAST - CT Abdomen And Pelvis WO/W Contrast Injection TECHNIQUE: Helically acquired images were obtained of the abdomen and pelvis both before and after IV contrast. A radiation dose optimization technique was used for this scan. IV Contrast dosage and agent: 100 mL Omnipaque 300 Radiation Dose (provided by facility) CTDIvol (17.24 ) mGy, DLP ( 3072.47) mGy-cm Oral contrast: None. COMPARISON: 08/12/2014, 02/14/2013 FINDINGS: LOWER CHEST: Lung bases are clear. No cardiomegaly or pericardial effusion. LIVER: Liver is unchanged in size configuration. Mild fatty involution is noted. There is a small 12 x 12 mm low-density circumscribed structure in the RIGHT hepatic lobe segment 6 consistent with a hepatic cyst, there has been slight increase in size in the interval however.. No other intrahepatic abnormalities noted. GALLBLADDER AND BILIARY TREE: No calcified gallstones. No gallbladder distension or wall edema. No intra- or extrahepatic biliary ductal dilation. PANCREAS: No focal cystic or solid mass. SPLEEN: Normal size without focal cystic or solid mass. ADRENAL GLANDS: No nodules. KIDNEYS AND URETERS: Kidneys have normal size and configuration. There is a subtle bilateral caliectasis however no masses calcifications or evidence of garret obstructive uropathy. PERITONEUM: No ascites or free air. No other fluid collection. BOWEL: The appendix appears be surgically absent. No stomach or bowel distension. No focal inflammatory change. No evidence diverticulitis. LYMPH NODES: No enlarged mesenteric or retroperitoneal lymph nodes. VESSELS: Aorta is non-dilated. URINARY BLADDER: Unremarkable. REPRODUCTIVE ORGANS: Postop changes of prior hysterectomy. No evidence pelvic masses or abnormal fluid collections. ABDOMINAL WALL: No discrete abdominal or pelvic wall hernia. BONES: No lytic or blastic abnormality. There are broad-based disc bulges particularly at L4-5 without evidence canal stenosis CT/CT Abd/Pelvis W/WO Contrast IMPRESSION: 1. No evidence or renal calcifications, masses or evidence of garret obstructive uropathy. There is mild caliectasis bilaterally which is nonspecific. No perinephric fluid collections. No CT evidence of masses, obstructive changes, or pyelonephritis. 2. Normal appearance of bladder. 3. Normal appearance of bowel segments. Postop changes of prior appendectomy. 4. Fatty infiltration liver consistent with hepatic steatosis and small benign-appearing cyst in the RIGHT hepatic lobe. Electronically Signed: Augustin Subramanian MD at 14:20 EST Tel , Service support ,
[2021-01-19 13:26] LABS: CREATININE FINGERSTICK 0.7 mg/dL (0.55-1.02); EGFR FINGERSTICK > 60.0000 mL/min (>60)
== END ==
PROVIDERS: PCP Internal Medicine; Referring Provider Urology; Visit Provider Urology
DX: Z01.812 Encounter for preprocedural laboratory examination (principal); R31.0 Gross hematuria
CPT/HCPCS: 74178; Q9967

== ENCOUNTER 2021-02-08 09:44 | Day surgery (SDC) | payer OTHER, SELFPAY ==
--- NOTE | 2021-02-08 09:56 | EKG12_ITS ---
Test Reason : PREOP Blood Pressure : / mmHG Vent. Rate : 081 BPM Atrial Rate : 081 BPM P-R Int : 164 ms QRS Dur : 070 ms QT Int : 388 ms P-R-T Axes : 038 -20 024 degrees QTc Int : 450 ms Normal sinus rhythm Inferior infarct (cited on or before 17-APR-2005) Abnormal ECG When compared with ECG of 12-AUG-2014 12:57, No significant change was found Confirmed by ANDREWS DIA, GEMMA ([id number]), clinical editor CARLOS EDUARDO DE LEON ([id number]) on 02/10/2021 2:01:44 PM Referred By: Saundra Fall Confirmed By:GEMMA SPARROW MD
[2021-02-08 10:07] VITALS: BP 124/71; PULSE 85; RESP 16; TEMP 37.3; O2SAT 94; BMI 32.3
[2021-02-08] MEDS: Lactated Ringers 1,000 ML 15 ML IV (10:17)
[2021-02-08 10:25] LABS: Hematocrit 40.3 % (37-47); Hemoglobin 13.7 g/dL (12.0-15.0); Mean Corpuscular Hgb 30.2 pg (27.0-32.0); Mean Corpuscular Volume 88.8 fL (81-99); Mean Platelet Vol. 10.2 fl (6.2-12.0); Platelet Count 240 K/mm3 (150-450); RBC Distribution Width CV 13.1 % (11.6-14.6); RBC Distribution Width SD 42.4 fl (35.1-43.9); Red Blood Count 4.54 M/mm3 (4.2-5.4); White Blood Count 6.2 K/mm3 (4.4-11.0)
[2021-02-08 10:39] LABS: Anion Gap 7 (5-15); BUN 15 mg/dL (7-18); BUN/Creat Ratio 18.8 RATIO (10-20); Calcium,Total 9.2 mg/dL (8.5-10.1); Chloride 110 mmol/L (98-107); EST Glomerular Filtration Rate 77 mL/min (>60); Est Glom Filt Rate - Afr Amer 93 mL/min (>60); Estimated Creatinine Clearance 60.54 ml/min; Glucose 90 mg/dL (74-106); Potassium 3.9 mmol/L (3.5-5.1); Sodium Level 142 mmol/L (136-145)
--- NOTE | 2021-02-08 12:02 | OP.PCM_ITS ---
Problems Associated Problem List Diagnoses (1) Other urethral stricture, female: (2) Gross hematuria: Report of Operation Date of Procedure: 02/08/21 Pre-Operative Diagnosis: urethral stricture, gross hematuria Post-Operative Diagnosis: same Surgery/Procedure Performed:: urethral dilation, cystoscopy Surgeon: Saundra Fall Type of Anesthesia: General Description of Procedure: The patient is a 66-year-old female with gross hematuria. Due to a urethral stricture we were unable to proceed with cystoscopy in the office and she presents today for urethral dilation and cystoscopy for further evaluation. Informed consent was obtained. The patient was taken to the operating room and placed in the operating room table. Anesthesia monitored the head, neck, airway, IV access and vital signs throughout the case. Once anesthesia was appropriate ministered the patient was placed in dorsal lithotomy position was prepped and draped in usual sterile fashion. The urethra was sequentially dilated from 12 [place] to 24 [place] without difficulty. The cystoscope was then easily inserted through the urethra under direct visualization into the urinary bladder. With a 70 degree lens the bladder mucosa in its entirety was visualized and found to be without evidence of mass, erythema, foreign body or other abnormality. The urethra was found to be normal. At this time the patient's bladder was emptied and the case was terminated. She was awakened and taken to recovery room in good condition. There were no complications during this procedure. Grafts/Implants Used: none Complications none Admit VTE Documentation VTE Present on Admission: Yes VTE Mechan Device Prophylaxis: SCD's VTE Pharm Prophylaxis ordered?: Yes
--- NOTE | 2021-02-08 12:04 | DCINST_ITS ---
Discharge Instructions Diet Discharge Diet: No restrictions Activity Discharge Activity: Return to Normal Activity Dressing / Incision Call your doctor if you observe: Fever of 101 or Higher, Inability to urinate, Inability to have a bowel movement and Uncontrolled pain Follow Up Care Please Follow Up With: Saundra Fall MD When: 2-4 weeks, call office for appt Test Results: Test results from this visit will be discussed in further detail at your follow-up appointment, if applicable. Discharge Plan Admission Attending Provider: Saundra Fall Primary Care Provider: Shasha Mayo Discharge Orders/Prescriptions Prescriptions: New cephalexin [cephalexin] 500 MG capsule 500 mg PO Q12 2 Days Qty: 4 RF: 0 Continued calcium carbonate-vitamin D3 [Calcium 600 with Vitamin D3] 600 mg(1,500mg) - 500 unit capsule 1 cap PO DAILY RF: 0 biotin 10,000 mcg capsule 10,000 mcg PO DAILY RF: 0 citalopram 10 MG tablet 30 mg PO DAILY RF: 0 apixaban 2.5 MG tablet 2.5 mg PO BID RF: 0 tizanidine 4 MG tablet 4 mg PO TID PRN PRN (Reason: MUSCLE SPASM) Qty: 14 RF: 0 cholecalciferol (vitamin D3) [Vitamin D3] 25 mcg (1,000 unit) Tablet,Chewable 25 mcg PO DAILY RF: 0 Referrals / Follow Up: Shasha Mayo DO [Primary Care Provider] - Disposition Disposition (needs filled in before D/C Order can be placed): Home, Self Care
[2021-02-08 12:26] VITALS: BP 117/62; BP 124/71; PULSE 71; RESP 16; TEMP 36.7; O2SAT 93
[2021-02-08 12:30] VITALS: BP 113/70; BP 124/71; PULSE 72; RESP 16; O2SAT 92
[2021-02-08 12:51] VITALS: BP 109/64; BP 124/71; PULSE 64; RESP 16; TEMP 36.4; O2SAT 95
[2021-02-08 13:15] VITALS: BP 124/71
[2021-02-08 13:32] VITALS: BP 124/71; BP 124/82; PULSE 79; RESP 16; TEMP 37.1; O2SAT 98
== END 2021-02-08 13:45 | disposition home or self-care (01) ==
LOC: SDC 09:45 → AC 09:46
PROVIDERS: PCP Internal Medicine; Referring Provider Urology; Visit Provider Urology
PROC: 0TBB8ZX Excision of Bladder, Via Natural or Artificial Opening Endoscopic, Diagnostic (ICD-10-PCS; CPT 52281; principal; 2021-02-08 11:30)
DX: N35.92 Unspecified urethral stricture, female (principal); R31.0 Gross hematuria; N39.41 Urge incontinence; N39.0 Urinary tract infection, site not specified; N32.89 Other specified disorders of bladder; M19.90 Unspecified osteoarthritis, unspecified site; Z79.01 Long term (current) use of anticoagulants; Z79.899 Other long term (current) drug therapy; Z78.0 Asymptomatic menopausal state; Z86.711 Personal history of pulmonary embolism
CPT/HCPCS: 52281; 80048; 85027; 93005; J7120; J2405

== ENCOUNTER 2021-05-10 07:03 | Outpatient (CLI) | payer OTHER, SELFPAY ==
[2021-05-10 08:11] LABS: Absolute Lymphocyte Count 1.26 X10^3/uL (0.83-4.51); Absolute Neutrophil Count 1.6 X10^3/uL (2.0-7.7); Basophil# 0.03 X10^3/uL; Basophil% 0.9 % (0-1); Eosinophil# 0.18 X10^3/uL; Eosinophils% 5.1 % (0-5); Hematocrit 41.7 % (37-47); Lymphocyte # 1.26 X10^3/ul (0.83-4.51); Lymphocyte % 35.9 % (19-41); Mean Corp Hgb Conc 33.6 g/dL (32-36); Mean Corpuscular Hgb 30.5 pg (27.0-32.0); Mean Corpuscular Volume 90.8 fL (81-99); Mean Platelet Vol. 10.4 fl (6.2-12.0); Monocyte# 0.39 X10^3/uL; Monocyte% 11.1 % (0-10); NRBC Flagged by Analyzer 0 % (0-5); Neutrophil # 1.63 X10^3/uL (2.7-7.7); Neutrophil % 46.4 % (47-70); Platelet Count 239 K/mm3 (150-450); RBC Distribution Width CV 13.2 % (11.6-14.6); RBC Distribution Width SD 43.4 fl (35.1-43.9); Red Blood Count 4.59 M/mm3 (4.2-5.4); White Blood Count 3.5 K/mm3 (4.4-11.0)
[2021-05-10 08:24] LABS: ALB/GLOB Ratio 1.3 RATIO (0.9-2.4); AST(SGOT) 21 U/L (15-37); Alanine Aminotransfer ALT/SGPT 34 U/L (13-56); Albumin, Serum 3.6 g/dL (3.2-5.0); Alkaline Phosphatase 77 U/L (45-117); Anion Gap 4 (5-15); BUN 13 mg/dL (7-18); BUN/Creat Ratio 16.9 RATIO (10-20); Calcium,Total 9.3 mg/dL (8.5-10.1); Chloride 108 mmol/L (98-107); Creatinine, Serum 0.77 mg/dL (0.55-1.02); EST Glomerular Filtration Rate 80 mL/min (>60); Est Glom Filt Rate - Afr Amer 97 mL/min (>60); Globulin 2.8 g/dL (2.2-4.2); Glucose 103 mg/dL (74-106); Potassium 4.1 mmol/L (3.5-5.1); Protein, Total 6.4 g/dL (6.4-8.2); Sodium Level 141 mmol/L (136-145)
[2021-05-10 08:42] LABS: BNP,B-Type NATRIURETIC PEPTIDE 31.6 pg/mL (0-100)
--- NOTE | 2021-05-10 08:53 | RAD_ITS ---
STUDY: X-RAY CHEST REASON FOR EXAM: Female, 66 years old. COUGH TECHNIQUE: PA and lateral views of the chest. COMPARISON: 08/12/2014 FINDINGS: The lungs are clear and expanded. There is no demonstrated pleural abnormality. Normal size heart. Normal mediastinum and feliz. Normal visualized pulmonary arteries. Normal visualized aortic arch and descending thoracic aorta. Mild scoliosis of the thoracic spine. Normal visualized ribs, clavicles, and shoulders. There is no demonstrated abnormality of the visualized soft tissue structures of the upper abdomen. RAD/Chest PA and Lateral IMPRESSION: No airspace consolidation or pleural effusion. Electronically Signed: Wade Wallace MD ([place]) at 9:09 EDT ,
[2021-05-10 09:00] LABS: D-Dimer Quantitative (DVT/PE) < 0.27 FEU/ug/m (0.27-0.49)
== END 2021-05-10 23:59 | disposition home or self-care (01) ==
LOC: LABSPEC 07:05 → MTRAD 07:08
PROVIDERS: PCP Internal Medicine; Referring Provider Internal Medicine; Visit Provider Internal Medicine
DX: R05.9 Cough, unspecified (principal)
CPT/HCPCS: 71046; 80053; 83880; 85025; 85379

== ENCOUNTER → 2023-05-25 | Outpatient (CLI) | payer MEDICARE, SELFPAY ==
--- NOTE | 2023-05-25 13:57 | BD_ITS ---
STUDY: DUAL ENERGY X-RAY ABSORPTIOMETRY / DXA REASON FOR EXAM: Female, 68 years old. Z780 TECHNIQUE: Bone Mineral Density (BMD) measurements of lumbar spine and bilateral hips were obtained. COMPARISON: Comparison is made with prior study dated June 25, 2015. FINDINGS: Lumbar Spine (L1-L4): g/cm2 (1.014) / T-score (-0.3) / Z-score (1.6) Findings are suggestive of normal bone density with a low fracture risk. Left Femur Total: g/cm2 (0.769) / T-score (-1.4) / Z-score (-0.1) Left Femoral Neck: g/cm2 (0.611) / T-score (-2.1) / Z-score (-0.5) Right Femur Total: g/cm2 (0.825) / T-score (-1.0) / Z-score (0.4) Right Femoral Neck: g/cm2 (0.658) / T-score (-1.7) / Z-score (-0.1) The T-Scores on the most recent prior examination were: Lumbar Spine (L1-L4): There has been worsening of bone density since the previous examination. Left Femur Total: which represents a worsening of 0.6%. Right Femur Total: which represents an improvement of 2.5%. BD/Dexa Bone Density Study IMPRESSION: The patient is considered osteopenic as outlined below according to World Zachary Organization (WHO) criteria with a moderate fracture risk. There has been worsening of bone density since the previous examination. Reference Information: The T-score is the number of standard deviations above or below the standard which is normal for young adults at their peak bone mineral density. The World Health Organization (WHO) interprets the T-scores as follows: Above -1 Normal bone density Between -1 and -2.5 Osteopenia Equal to / or below -2.5 Osteoporosis As a practical clinical guideline, osteopenia may be graded as follows: Mild -1 through -1.5 Moderate -1.6 through -2.0 Severe -2.1 through -2.4 The Z-score is the number of standard deviations above or below age-matched controls. A Z-score of less than -1.5 would be considered abnormal. References: 1. NIH Osteoporosis and Related Bone Diseases www osteo.org 2. International Society for Clinical Densitometry www iscd.org 3. National Osteoporosis Foundation www nof.org Electronically Signed: Neal Snider MD at 15:32 EDT ,
--- NOTE | 2023-05-25 13:57 | BI_ITS ---
MAMMOGRAPHY - BILATERAL SCREENING REASON FOR EXAM: Female, 68 years old. Routine annual screening examination. PERTINENT HISTORY: Non-contributory. TECHNIQUE: Digital bilateral breast brittney (3D mammographic acquisition) in the CC and MLO projections. 2-D mediolateral oblique (MLO) and craniocaudad (CC) views of both breasts were obtained. CAD: Full Field Digital Mammography with Computer Added Detection was performed. COMPARISON: Comparison is made with prior study January 29, 2019 and January 10, 2018. FINDINGS: Breast Composition: There are scattered areas of fibroglandular density. There are no dominant masses or suspicious calcifications. Stable small benign-appearing bilateral axillary lymph nodes. No other significant abnormalities are identified. There has been no significant change since the prior study. BI/SCRN MAMM (CAD)W/BRITTNEY BILAT IMPRESSION: Stable bilateral screening mammogram. Yearly follow-up mammogram recommended. (A) ASSESSMENT CATEGORY: BIRADS Category 2: Benign. A letter regarding these results will be sent to the patient by the facility within 30 days. Approximately 10% of breast cancers are not detected by mammography. A normal mammogram should not delay biopsy of a clinically suspicious abnormality. [id number] Electronically Signed: Neal Snider MD at 14:53 EDT ,
== END | disposition home or self-care (01) ==
LOC: OPBD 13:56
PROVIDERS: PCP Internal Medicine; Referring Provider Internal Medicine; Visit Provider Internal Medicine
DX: Z12.31 Encounter for screening mammogram for malignant neoplasm of breast (principal); Z78.0 Asymptomatic menopausal state
CPT/HCPCS: 77063; 77067; 77080

== ENCOUNTER → 2024-08-01 | Outpatient (CLI) | payer MEDICARE, SELFPAY ==
--- NOTE | 2024-08-01 14:26 | BI_ITS ---
EXAM: SCRN MAMM (CAD)W/BRITTNEY BILAT DATE: 08/01/2024 CLINICAL HISTORY: F, Age 69 y/o , SCREENING BREAST CANCER RISK ASSESSMENT: NA TECHNIQUE: Bilateral screening digital breast tomosynthesis with 2D and 3D images. Computer aided detection. COMPARISON: Prior exam(s) were compared FINDINGS: TISSUE DENSITY: The breast tissue is composed of scattered area of fibroglandular density. Bilateral Breast Mammographic Findings: Right breast: There is questionable architectural distortion in the central right breast/slightly inner at mid depth on the CC view. Left breast: No suspicious masses, calcifications or other abnormalities are identified. BI/SCRN MAMM (CAD)W/BRITTNEY BILAT IMPRESSION: OVERALL FINAL ASSESSMENT: BIRADS 0 Incomplete: Need additional imaging evaluati on. RECOMMENDATION: Incomplete: Need additional imaging evaluation with diagnostic right breast donal mogram and ultrasound . A letter with findings and recommendations will be mailed to the patient. Reading Location: [id number]
== END | disposition home or self-care (01) ==
PROVIDERS: PCP Internal Medicine; Referring Provider Internal Medicine; Visit Provider Internal Medicine
DX: Z12.31 Encounter for screening mammogram for malignant neoplasm of breast (principal)
CPT/HCPCS: 77063; 77067

== ENCOUNTER → 2024-08-13 | Outpatient (CLI) | payer MEDICARE, SELFPAY ==
--- NOTE | 2024-08-13 09:15 | BI_ITS ---
EXAM: DIAG MAMM W/CAD, UNILAT 08/13/2024 CLINICAL HISTORY: F, Age 69 y/o , ABN MAMM TECHNIQUE: 90 degree lateral and compression spot views of the right breast were obtained. Computer aided detection. COMPARISON: Prior exam(s) dated August 01, 2024.. FINDINGS: TISSUE DENSITY: The breast tissue is composed of scattered areas of fibroglandular density. Bilateral Breast Mammographic Findings: No significant masses, calcifications or other abnormalities are identified. Further evaluation with targeted ultrasound of the right breast recommended. BI/DIAG MAMM W/CAD, UNILAT IMPRESSION: No mammographic abnormality is seen. Further correlation with a diagnostic ult rasound recommended. OVERALL FINAL ASSESSMENT BI-RADS 0: INCOMPLETE - NEED ADDITIONAL IMAGING EVALUATION. RECOMMENDATION: Ultrasound Recommended A letter with findings and recommendations will be mailed to the patient. Reading Location: [place] [id number]
--- NOTE | 2024-08-13 09:15 | US_ITS ---
PROCEDURE: BREAST LIMITED UNILATERAL 08/13/2024 REASON FOR EXAM: ABN MAMM TECHNIQUE: BREAST LIMITED UNILATERAL COMPARISON: Prior mammogram dated August 01, 2024 and August 13, 2024.. FINDINGS: Right breast ultrasound was targeted to the upper medial aspect of the right breast.. The breast tissue appears sonographically normal. No cyst, solid mass, or suspicious shadowing. US/Breast Limited Unilateral IMPRESSION: BI-RADS 1: NEGATIVE. RECOMMEND ANNUAL MAMMOGRAPHIC SCREENING. Follow-up code: Routine Follow-up Reading Location: [place] [id number]
== END | disposition home or self-care (01) ==
LOC: OPBI 09:08
PROVIDERS: PCP Internal Medicine; Referring Provider Internal Medicine; Visit Provider Internal Medicine
DX: N63.15 Unspecified lump in the right breast, overlapping quadrants (principal)
CPT/HCPCS: 76642; 77065